=== PATIENT | female | born 1995 | race Caucasian/White ===

== ENCOUNTER 2024-05-08 02:30 | Emergency (ER) | payer OTHER ==
[~2024-05-08] VITALS: Ht 162.6 cm; Wt 54.4 kg
[2024-05-08] MEDS ORDERED: TDAP [DIPH/PERTUSSIS/TET] 0.5 ML VIAL IM ONE (02:48)
[2024-05-08] MEDS ORDERED: HYDROCODONE/APAP 5/325MG TABLET ONE (02:48)
[2024-05-08] MEDS: TDAP [DIPH/PERTUSSIS/TET] 0.5 ML VIAL IM ONE (02:51)
[2024-05-08] MEDS: HYDROCODONE/APAP 5/325MG TABLET PO ONE (02:52)
[2024-05-08] MEDS ORDERED: IBUP-1957 PO (03:19)
[2024-05-08 03:56] VITALS: BP 153/81; TEMP 98; O2SAT 98
== END 2024-05-08 03:57 | disposition home or self-care (01) ==
LOC: ER 02:36
DX: S00.83XA Contusion of other part of head, initial encounter (principal); Z79.1 Long term (current) use of non-steroidal anti-inflammatories (NSAID); W06.XXXA Fall from bed, initial encounter; Y93.89 Activity, other specified; Y92.89 Other specified places as the place of occurrence of the external cause; Y99.8 Other external cause status
CPT/HCPCS: 70450-TC; 70486-TC; 90715